=== PATIENT | male | born 1980 | race Caucasian/White ===

== ENCOUNTER 2022-08-12 12:18 | Emergency (ER) | payer BC ==
[~2022-08-12] VITALS: Ht 195.6 cm; Wt 120.5 kg
[2022-08-12 12:32] LABS: BASOPHILS # (AUTO) 0.1 X10'3 (0-0.2); EOSINOPHILS # (AUTO) 0.4 X10'3 (0-0.9); EOSINOPHILS % (AUTO) 6.7 % (0-6); HEMATOCRIT 46.4 % (42.0-52.0); HEMOGLOBIN 16.1 g/dl (14.0-17.9); LYMPHOCYTES # (AUTO) 1.8 X10'3 (1.1-4.8); LYMPHOCYTES % (AUTO) 29.5 % (21-51); MEAN CORPUSCULAR HEMOGLOBIN 32.4 PG (27.0-31.0); MEAN CORPUSCULAR HGB CONC 34.8 g/dL (33.0-36.5); MEAN CORPUSCULAR VOLUME 93.1 FL (78-98); MEAN PLATELET VOLUME 6.9 FL (7.4-10.4); MONOCYTES # (AUTO) 0.7 X10'3 (0-0.9); MONOCYTES % (AUTO) 11.4 % (2-12); NEUTROPHILS # (AUTO) 3.1 X10'3 (1.8-7.7); NEUTROPHILS % (AUTO) 51.4 % (42-75); PLATELET COUNT 201 X10'3 (140-440); RED BLOOD COUNT 4.98 X10'6 (4.70-6.10); RED CELL DISTRIBUTION WIDTH 13.1 % (11.5-14.5)
[2022-08-12 12:45] LABS: ALANINE AMINOTRANSFERASE 36 U/L (12-78); ALBUMIN 4.3 G/DL (3.4-5.0); ALBUMIN/GLOBULIN RATIO 1.4 (1.1-1.5); ALKALINE PHOSPHATASE 54 IU/L (46-116); ANION GAP 3 (8-16); ASPARTATE AMINO TRANSFERASE 22 U/L (10-37); BILIRUBIN,TOTAL 0.9 MG/DL (0.1-1.0); BLOOD UREA NITROGEN 11 MG/DL (7-18); BUN/CREATININE RATIO 8.5 (10.0-20.0); CALCIUM 9.4 MG/DL (8.5-10.1); CHLORIDE 103 MMOL/L (99-107); CREATININE 1.29 MG/DL (0.60-1.10); GLUCOSE 92 MG/DL (70-104); SODIUM 138 MMOL/L (135-145); TOTAL PROTEIN 7.3 G/DL (6.4-8.2); eGFR 62 ML/MIN
[2022-08-12 12:50] LABS: MAGNESIUM 1.9 MG/DL (1.5-2.4)
[2022-08-12] MEDS ORDERED: sucralfate 1 gm tablet PO ONE (13:25)
[2022-08-12] MEDS ORDERED: LIDOcaine Viscous 15ml cup MM ONE (13:25)
[2022-08-12] MEDS ORDERED: mag hydrox/Alum hydrox/simeth 30ml oral suspension PO ONE (13:25)
[2022-08-12 13:54] VITALS: BP 133/86
== END 2022-08-12 15:57 | disposition home or self-care (01) ==
LOC: ER 12:19
DX: R07.89 Other chest pain (principal)
CPT/HCPCS: 36415; 80053; 83735; 83880; 84484; 85025; 93005; 99284